=== PATIENT | female | born 1960 | race Caucasian/White ===

== ENCOUNTER → 2016-09-04 | Outpatient (CLI) | payer OTHER ==
[~2016-09-04] MED LIST: CENTRUM SILVER1 TAB PO; HYDROCODON-ACETAMINO OR; KAPIDEX60 MG PO; OXYCODONE SR 4040 MG PO; SPIRIVA HA1 PUFF/INH IH; SUMATRIPTAN SU100 MG PO; TOPIRAMATE50 MG PO; WELLBUTRIN SR200 MG PO; XOLAIR150 MG SC; ZOLPIDEM 10MG T10 MG PO
--- NOTE | 2016-09-04 12:57 | RADIOLOGY REPORT PS360 ---
FOOT-LT-3 VIEWS HISTORY: LT FOOT PAIN ORDERING PHYSICIAN: CLARISA Quan PATIENT AGE: 56 years COMPARISON: 08/12/2015 FINDINGS: A nondisplaced comminuted fracture is present at the base of the proximal phalanx of the fifth toe with a component which extends into the articular surface of the fifth metatarsophalangeal junction. Screws are once again noted at the interphalangeal joints of the second, third, and fourth toes. There has however been development of a prominent zone of lucency around the screw at the second toe most prominent at the distal phalanx region. The lucent zone is well-circumscribed and could be due to loosening of the prosthesis. A zone of lucency also surrounds the screw at the proximal phalanx of the fourth toe somewhat more prominent compared to the previous study. IMPRESSION: 1. Nondisplaced comminuted fracture at the proximal aspect of the proximal phalanx of the fifth toe with intra-articular extension at the metatarsophalangeal junction. 2. Prior ORIF second, third, and fourth toes with developing zones of lucency at the second and fourth toe which could be due to prosthesis loosening
== END ==
LOC: RAD 12:18
DX: M79.672 Pain in left foot (principal)

== ENCOUNTER → 2017-04-05 | Outpatient (CLI) | payer OTHER ==
[2017-04-05 10:52] LABS: LYMPH # 1.9 K/mm3 (0.7-4.5); LYMPH % 15.3 % (10-50.0)
[2017-04-05 11:04] LABS: HEMOGLOBIN 12.6 g/dL (12.2-16.2)
[2017-04-05 13:53] LABS: BUN 7 mg/dL (7-18)
[2017-04-05 13:55] LABS: GFR (ESTIMATED) 74 ML/MIN (59-)
== END ==
LOC: LAB 10:39
PROVIDERS: Family Medicine
DX: E78.5 Hyperlipidemia, unspecified (principal); J44.9 Chronic obstructive pulmonary disease, unspecified; Z51.81 Encounter for therapeutic drug level monitoring